=== PATIENT | male | born 1990 | race Caucasian/White ===

== ENCOUNTER 2017-08-04 01:32 | Emergency (ER) | payer OTHER ==
[~2017-08-04] VITALS: Ht 172.7 cm; Wt 104.5 kg
[2017-08-04 02:10] LABS: BASOPHIL (%) 0.3 % (0-1); EOSINOPHIL (%) 0 % (0-5); HEMATOCRIT 48.5 % (38.0-50.0); IMMATURE GRANULOCYTE (%) 1.1 % (0.0-0.7); LYMPHOCYTE COUNT 1.6 K/uL (1.0-2.8); MCH 31.5 PG (29.0-34.0); MCHC 35.1 G/DL (30.0-36.0); MONOCYTE (%) 4.6 % (3-12); MONOCYTE COUNT 0.6 K/uL (0-0.8); NEUTROPHIL COUNT 10.2 K/uL (1.8-6.4); PLATELET COUNT 264 K/uL (156-360); RBC DIS.WIDTH-SD 39.3 % (39-53); RED BLOOD COUNT 5.39 M/uL (4.00-5.50); WHITE BLOOD COUNT 12.6 K/uL (4.1-10.2)
[2017-08-04 02:25] LABS: ALBUMIN 4.6 g/dL (3.2-4.8); CHLORIDE 107 mEq/L (99-109); POTASSIUM 4.3 mEq/L (3.7-5.4); SODIUM 142 mEq/L (136-147)
[2017-08-04 02:28] LABS: GLUCOSE 121 mg/dL (70-99); TOTAL PROTEIN 7.9 g/dL (6.4-8.3)
[2017-08-04 02:30] LABS: TOTAL BILIRUBIN 0.4 mg/dL (0.0-1.0)
[2017-08-04 02:31] LABS: ALKALINE PHOSPHATASE 106 IU/L (3-129); SERUM ETHYL ALCOHOL 141 mg/dL
[2017-08-04 02:32] LABS: CREATININE 1.1 mg/dL (0.6-1.3); GFR ESTIMATE (CALCULATED) > 59 mL/min/ (58.99-99999)
[2017-08-04 02:33] LABS: AST (GOT) 59 IU/L (2-34); UREA NITROGEN (BUN) 12 mg/dL (9-23)
[2017-08-04 02:34] LABS: ALT (GPT) 47 IU/L (3-49)
[2017-08-04 02:35] LABS: LIPASE 37 U/L (1.0-51.0)
[2017-08-04] MEDS ORDERED: ULTRAM50 MG PO (04:17)
[2017-08-04] MEDS ORDERED: WHEELCHAIR1 EACH MC (04:44)
[2017-08-04 05:14] VITALS: BP 121/73
== END 2017-08-04 05:15 | disposition home or self-care (01) ==
LOC: EME 01:32
PROVIDERS: Physician Assistant
PROC: 2W3LX1Z Immobilization of Right Lower Extremity using Splint (ICD-10-PCS; principal; 2017-08-04)
DX: S82.51XA Displaced fracture of medial malleolus of right tibia, initial encounter for closed fracture (principal); S32.010A Wedge compression fracture of first lumbar vertebra, initial encounter for closed fracture; S32.020A Wedge compression fracture of second lumbar vertebra, initial encounter for closed fracture; V48.5XXA Car driver injured in noncollision transport accident in traffic accident, initial encounter
CPT/HCPCS: 70450; 71260; 72125; 73000; 73610; 74177; 80053; 83690; 85025; 85610; 85730; 99281; 99284; G0480; J2060; J7030